=== PATIENT | female | born 1990 | race Two or more races ===

== ENCOUNTER 2020-01-15 11:41 | Observation (INO) | payer MEDICAID ==
[~2020-01-15] VITALS: Ht 167.6 cm; Wt 72.6 kg
[2020-01-15] MEDS ORDERED: PREN-96 PO (12:07)
== END 2020-01-15 12:50 | disposition home or self-care (01) ==
LOC: LDRP 11:41
PROVIDERS: ADMIT Obstetrics & Gynecology; ATTEND Obstetrics & Gynecology
DX: Z34.93 Encounter for supervision of normal pregnancy, unspecified, third trimester (principal); Z3A.27 27 weeks gestation of pregnancy
CPT/HCPCS: 59025; 76818; 81002; G0378

== ENCOUNTER 2020-01-18 13:33 | Observation (INO) | payer MEDICAID ==
[~2020-01-18 13:33] MED LIST: PREN-96 PO
== END 2020-01-18 15:26 | disposition home or self-care (01) ==
LOC: LDRP 13:33
PROVIDERS: ADMIT Obstetrics & Gynecology; ATTEND Obstetrics & Gynecology
DX: O09.293 Supervision of pregnancy with other poor reproductive or obstetric history, third trimester (principal); Z3A.27 27 weeks gestation of pregnancy
CPT/HCPCS: 59025; 76818; 81002; G0378

== ENCOUNTER 2020-01-25 14:42 | Observation (INO) | payer MEDICAID | END 2020-01-25 16:45 | disposition home or self-care (01) | LOC: LDRP 14:42 | PROVIDERS: ADMIT Specialist; ATTEND Specialist | DX: O60.03 Preterm labor without delivery, third trimester (principal); Z87.59 Personal history of other complications of pregnancy, childbirth and the puerperium; Z3A.29 29 weeks gestation of pregnancy | CPT/HCPCS: 59025; 76818; 81002; G0378 ==

== ENCOUNTER 2020-01-30 13:21 | Observation (INO) | payer MEDICAID | END 2020-01-30 15:14 | disposition home or self-care (01) | LOC: LDRP 13:21 | PROVIDERS: ADMIT Obstetrics & Gynecology; ATTEND Obstetrics & Gynecology | DX: Z34.83 Encounter for supervision of other normal pregnancy, third trimester (principal); Z3A.29 29 weeks gestation of pregnancy | CPT/HCPCS: 59025; 76818; 81002; G0378 ==

== ENCOUNTER 2020-03-12 13:19 | Observation (INO) | payer MEDICAID | END 2020-03-12 14:50 | disposition home or self-care (01) | LOC: LDRP 13:19 → UNDOADMOB 13:19 | PROVIDERS: ADMIT Specialist; ATTEND Specialist | DX: O09.293 Supervision of pregnancy with other poor reproductive or obstetric history, third trimester (principal); Z3A.35 35 weeks gestation of pregnancy | CPT/HCPCS: 59025; 76818; 81002; G0378 ==

== ENCOUNTER 2020-03-12 13:35 | Observation (INO) | payer MEDICAID ==
[2020-03-26] MEDS ORDERED: NIF10C PO (15:47)
[2020-03-26] MEDS: NIFEdipine 10 MG CAP PO ONE ×2 (15:53→15:57)
== END 2020-03-26 17:05 | disposition home or self-care (01) ==
LOC: LDRP 13:35 → UNDOADMOB 13:35 → LDRP 03-26 14:40
PROVIDERS: ADMIT Specialist; ATTEND Specialist
DX: O09.293 Supervision of pregnancy with other poor reproductive or obstetric history, third trimester (principal); Z3A.37 37 weeks gestation of pregnancy
CPT/HCPCS: 59025; 76818; 81002; G0378

== ENCOUNTER 2020-03-15 14:39 | Observation (INO) | payer MEDICAID ==
[~2020-03-15] VITALS: Ht 167.6 cm; Wt 85.7 kg
== END 2020-03-15 16:08 | disposition home or self-care (01) ==
LOC: LDRP 14:39
PROVIDERS: ADMIT Obstetrics & Gynecology; ATTEND Obstetrics & Gynecology
DX: O36.4XX0 Maternal care for intrauterine death, not applicable or unspecified (principal); Z3A.36 36 weeks gestation of pregnancy
CPT/HCPCS: 59025; 76818; 81002; G0378

== ENCOUNTER 2020-03-19 14:21 | Observation (INO) | payer MEDICAID | END 2020-03-19 16:30 | disposition home or self-care (01) | LOC: LDRP 14:21 | PROVIDERS: ADMIT Specialist; ATTEND Specialist | DX: O36.4XX0 Maternal care for intrauterine death, not applicable or unspecified (principal); Z3A.36 36 weeks gestation of pregnancy | CPT/HCPCS: 59025; 76818; 81002; G0378 ==

== ENCOUNTER 2020-04-05 05:15 | Observation (INO) | payer MEDICAID ==
[~2020-04-05 05:15] MED LIST changes: +NIF10C PO
== END 2020-04-05 06:20 | disposition home or self-care (01) ==
LOC: LDRP 05:15
PROVIDERS: ADMIT Specialist; ATTEND Specialist
DX: Z34.83 Encounter for supervision of other normal pregnancy, third trimester (principal); Z20.828 Contact with and (suspected) exposure to other viral communicable diseases; Z3A.39 39 weeks gestation of pregnancy
CPT/HCPCS: 36415; 59025; 81002; 87426; G0378; U0003

== ENCOUNTER 2020-04-05 10:50 | Inpatient (IN) | payer MEDICAID ==
[~2020-04-05] VITALS: Ht 167.6 cm; Wt 89.4 kg
[2020-04-05] VITALS (11 sets, daily range): BP systolic 93–115; BP diastolic 50–60
[2020-04-05] MEDS ORDERED: ceFAZolin 1GM/50ML 50 ML IV ONE (11:15)
[2020-04-05] MEDS ORDERED: LACTATED RINGER'S 1,000 ML IV SCH ×2 (11:15→14:45)
[2020-04-05] MEDS ORDERED: LACTATED RINGER'S 1,000 ML IV ONE (11:15)
[2020-04-05 12:03] LABS: Basophils # (auto) 0 10 ^3/uL (0-0.2); Eosinophils # (auto) 0.1 10 ^3/uL (0-0.8); Lymphocytes # (auto) 1.5 10 ^3/uL (0.4-5.4); Monocytes # (auto) 0.7 10 ^3/uL (0-1.3); Monocytes % (auto) 7.8 % (0.0-12.0); Nucleated Red Blood Cells % 0.1 %; Red Cell Distribution Width 16.3 % (11.8-14.3)
[2020-04-05 12:05] LABS: Basophils % (auto) 0.3 % (0.0-2.0); Eosinophils % (auto) 0.6 % (0.0-7.0); Hematocrit 32.1 % (36.0-46.0); Hemoglobin 10.9 g/dL (12.2-16.2); Lymphocytes % (auto) 16.3 % (10.0-50.0); Mean Corpuscular Hgb Conc. 33.9 g/dL (32.0-36.0); Mean Corpuscular Volume 73.8 fL (80.0-100.0); Neutrophils # (auto) 6.7 10 ^3/uL (1.6-8.6); Platelet Count (auto) 206 10^3/uL (140-450); Red Blood Cells 4.35 10^6/uL (4.0-5.20); White Blood Cell 8.9 10^3/uL (4.4-10.8)
[2020-04-05 12:16] LABS: Urine Bacteria NONE SEEN /hpf (None Seen); Urine Blood Negative /uL (Negative); Urine Specific Gravity 1.026 (1.001-1.035); Urine WBC 2 /hpf (0 - 5)
[2020-04-05 12:23] LABS: INR 0.9 (0.9-1.15); Partial Thromboplastin Time 24.1 sec (23.0-31.2)
[2020-04-05 12:25] LABS: Albumin 2.5 g/dL (3.4-5.0); Calcium 7.8 mg/dL (8.5-10.1)
[2020-04-05 12:25] LABS: Amphetamine Screen, Urine NEGATIVE (NEGATIVE); Barbiturate Scree,Urine NEGATIVE (NEGATIVE); Benzodiazephine Screen, Urine NEGATIVE (NEGATIVE); Cannabinoid Screen, Urine NEGATIVE (NEGATIVE); Cocaine Screen, Urine NEGATIVE (NEGATIVE); Opiate Scree,Urine NEGATIVE (NEGATIVE); Phencyclidine Screen, Urine NEGATIVE (NEGATIVE)
[2020-04-05 12:29] LABS: BUN/Creatinine Ratio 26.3; Bilirubin, Total 0.3 mg/dL (0.2-1.0); Total Protein 6.1 g/dL (6.4-8.2)
[2020-04-05] MEDS ORDERED: TETRACAINE 1% INJ 2 ML VIAL IJ ONE (12:53)
[2020-04-05] MEDS ORDERED: MORPHINE SULF(PF) 0.5MG/ML 10ML VIAL ONE (13:22)
[2020-04-05] MEDS ORDERED: MIDAZOLAM HCL 1MG/1ML-2 ML VIAL ONE (13:22)
[2020-04-05] MEDS ORDERED: fentaNYL CITRATE 100 MCG/2 ML VL ONE (13:22)
[2020-04-05] MEDS ORDERED: oxyTOCIN 10 UNIT/ML 10ML VIAL ONE (13:53)
[2020-04-05] MEDS ORDERED: KETOROLAC TROMETH 30 MG/ML 1ML VIAL IV PRN (14:30)
[2020-04-05] MEDS ORDERED: LABETALOL HCL 5 MG/ML 4ML SYRINGE IV PRN (14:30)
[2020-04-05] MEDS ORDERED: NALBUPHINE HCL 10 MG/1ml INJECTION SUBCUT ONE (14:30)
[2020-04-05] MEDS ORDERED: ONDANSETRON HCL 4 MG/2 ML VIAL IV PRN ×3 (14:30→14:45)
[2020-04-05] MEDS ORDERED: DexAMETHasone SOD PHOS 10MG/1ML VIAL INJ IV PRN (14:30)
[2020-04-05] MEDS ORDERED: ePHEDrine SULFATE 50 MG/ML AMP IV PRN (14:30)
[2020-04-05] MEDS ORDERED: HYDROmorphone HCL 2 MG/ML VL IV PRN (14:30)
[2020-04-05] MEDS ORDERED: NALOXONE HCL 0.4 MG/ML VIAL IV PRN (14:30)
[2020-04-05] MEDS ORDERED: diphenhdrAMINE HCL 50 MG/1 ML VL IV PRN (14:30)
[2020-04-05] MEDS ORDERED: GUM (CHEWING) 1 GUM CHEW CHEW ONE (14:45)
[2020-04-05] MEDS ORDERED: ceFAZolin 1GM/50ML 50 ML IV SCH (14:45)
[2020-04-05] MEDS: ceFAZolin 1GM/50ML 50 ML IV SCH (19:35)
[2020-04-05] MEDS: HYDROmorphone HCL 2 MG/ML VL IV PRN (19:47)
[2020-04-05] MEDS: KETOROLAC TROMETH 30 MG/ML 1ML VIAL IV PRN (20:27)
[2020-04-05] MEDS: ACETAMINOPHEN IV 1000 MG/100ML (10MG/ML) IV PRN (23:05)
[2020-04-06] VITALS (12 sets, daily range): BP systolic 90–127; BP diastolic 49–76
[2020-04-06] MEDS: HYDROmorphone HCL 2 MG/ML VL IV PRN ×3 (00:28→09:02)
[2020-04-06] MEDS: ceFAZolin 1GM/50ML 50 ML IV SCH ×2 (03:10→11:06)
[2020-04-06] MEDS: KETOROLAC TROMETH 30 MG/ML 1ML VIAL IV PRN ×2 (03:10→11:04)
[2020-04-06 05:06] LABS: RPR Non Reactive (Non Reactive)
[2020-04-06 07:02] LABS: Basophils # (auto) 0 10 ^3/uL (0-0.2); Eosinophils # (auto) 0.1 10 ^3/uL (0-0.8); Hematocrit 28.1 % (36.0-46.0); Hemoglobin 9.2 g/dL (12.2-16.2); Monocytes # (auto) 0.7 10 ^3/uL (0-1.3); White Blood Cell 10.5 10^3/uL (4.4-10.8)
[2020-04-06 07:05] LABS: Basophils % (auto) 0.1 % (0.0-2.0); Eosinophils % (auto) 0.7 % (0.0-7.0); Lymphocytes # (auto) 1.3 10 ^3/uL (0.4-5.4); Lymphocytes % (auto) 12.5 % (10.0-50.0); Mean Corpuscular Hemoglobin 24.2 pg (28.0-32.0); Mean Corpuscular Hgb Conc. 32.9 g/dL (32.0-36.0); Mean Corpuscular Volume 73.6 fL (80.0-100.0); Monocytes % (auto) 6.5 % (0.0-12.0); Neutrophils # (auto) 8.4 10 ^3/uL (1.6-8.6); Neutrophils % (auto) 80.2 % (37.0-80.0); Platelet Count (auto) 176 10^3/uL (140-450); Red Blood Cells 3.82 10^6/uL (4.0-5.20); Red Cell Distribution Width 16.2 % (11.8-14.3)
[2020-04-06] MEDS ORDERED: HYDROcodone-ACET 5/325MG TAB PO PRN (10:45)
[2020-04-06] MEDS: ACETAMINOPHEN IV 1000 MG/100ML (10MG/ML) IV PRN (17:00)
[2020-04-06] MEDS: IBUPROFEN 800 MG TAB PO PRN (17:55)
[2020-04-06] MEDS: DOCUSATE SOD 100 MG CAP PO SCH ×2 (17:55→21:28)
[2020-04-06] MEDS: HYDROcodone-ACET 5/325MG TAB PO PRN (21:29)
[2020-04-07] VITALS (7 sets, daily range): BP systolic 110–126; BP diastolic 50–69
[2020-04-07] MEDS: IBUPROFEN 800 MG TAB PO PRN ×5 (01:55→19:40)
[2020-04-07] MEDS: HYDROcodone-ACET 5/325MG TAB PO PRN ×5 (05:35→22:09)
[2020-04-07] MEDS: DOCUSATE SOD 100 MG CAP PO SCH (22:06)
[2020-04-08 03:00] VITALS: BP 105/58
[2020-04-08] MEDS: HYDROcodone-ACET 5/325MG TAB PO PRN (05:34)
[2020-04-08] MEDS ORDERED: PREN-96 PO (06:47)
[2020-04-08 07:22] VITALS: BP 121/54
[2020-04-08] MEDS: IBUPROFEN 800 MG TAB PO PRN (08:12)
[2020-04-08] MEDS ORDERED: BISACODYL 10 MG RECT SUPP PR ONE (10:30)
[2020-04-08 11:04] VITALS: BP 139/71
[2020-04-08] MEDS: DOCUSATE SOD 100 MG CAP PO SCH (11:08)
== END 2020-04-08 11:15 | disposition home or self-care (01) | DRG 540 ==
LOC: LDRP 10:50
PROVIDERS: ADMIT Specialist; ATTEND Specialist
PROC: 0UL70CZ Occlusion of Bilateral Fallopian Tubes with Extraluminal Device, Open Approach (ICD-10-PCS; 2020-04-05)
PROC: 10D00Z1 Extraction of Products of Conception, Low, Open Approach (ICD-10-PCS; principal; 2020-04-05 13:23)
DX: O34.211 Maternal care for low transverse scar from previous cesarean delivery (principal); Z37.0 Single live birth; Z3A.39 39 weeks gestation of pregnancy; Z30.2 Encounter for sterilization
CPT/HCPCS: 36415; 59025; 80053; 80307; 81001; 81002; 85025; 85610; 85730; 86592; 86850; 86900; 86901; 94760; 96360; 96361; 96374; 96375; G0378; J0131; J0690; J1885; J2250; J2590

== ENCOUNTER 2020-06-12 09:29 | Emergency (ER) | payer MEDICAID ==
[~2020-06-12] VITALS: Ht 167.6 cm; Wt 77.1 kg
[~2020-06-12 09:29] MED LIST changes: -NIF10C PO
[2020-06-12] MEDS ORDERED: MORPHINE SULFATE 4 MG/ML SYR/VIAL IV ONE (10:00)
[2020-06-12] MEDS ORDERED: SODIUM CHLORIDE 0.9% 1,000 ML IV ONE (10:00)
[2020-06-12] MEDS ORDERED: ONDANSETRON HCL 4 MG/2 ML VIAL IV ONE (10:00)
[2020-06-12 10:42] LABS: Urine WBC None Seen /hpf (0 - 5)
[2020-06-12 10:50] LABS: Basophils # (auto) 0 10 ^3/uL (0-0.2); Eosinophils # (auto) 0.1 10 ^3/uL (0-0.8); Hemoglobin 11.5 g/dL (12.2-16.2); Lymphocytes # (auto) 1.5 10 ^3/uL (0.4-5.4); Monocytes # (auto) 0.7 10 ^3/uL (0-1.3); Red Blood Cells 4.55 10^6/uL (4.0-5.20); White Blood Cell 7.1 10^3/uL (4.4-10.8)
[2020-06-12 10:52] LABS: Basophils % (auto) 0.4 % (0.0-2.0); Eosinophils % (auto) 1.6 % (0.0-7.0); Hematocrit 34.6 % (36.0-46.0); Lymphocytes % (auto) 20.9 % (10.0-50.0); Mean Corpuscular Hemoglobin 25.2 pg (28.0-32.0); Mean Corpuscular Hgb Conc. 33.2 g/dL (32.0-36.0); Neutrophils # (auto) 4.7 10 ^3/uL (1.6-8.6); Neutrophils % (auto) 67.1 % (37.0-80.0); Nucleated Red Blood Cells % 0.1 %; Platelet Count (auto) 246 10^3/uL (140-450)
[2020-06-12 10:58] LABS: Urine Bacteria NONE SEEN /hpf (None Seen); Urine Blood Negative /uL (Negative); Urine Specific Gravity 1.014 (1.001-1.035)
[2020-06-12 11:01] LABS: Red Cell Distribution Width 20.4 % (11.8-14.3)
[2020-06-12 11:17] LABS: Albumin 3.2 g/dL (3.4-5.0); Calcium 8.6 mg/dL (8.5-10.1); Potassium 3.9 mmol/L (3.5-5.1)
[2020-06-12 11:20] LABS: BUN/Creatinine Ratio 26.9; Bilirubin, Total 0.2 mg/dL (0.2-1.0); Total Protein 6.4 g/dL (6.4-8.2)
[2020-06-12] MEDS ORDERED: MORPHINE SULF INJ 2 MG/ML SYRINGE 1ML IV ONE (12:15)
[2020-06-12] MEDS ORDERED: HYDROmorphone HCL 2 MG/ML VL IV ONE (15:45)
[2020-06-12] MEDS ORDERED: MAGNESIUM CITRATE SOLUTION 300 ML BTL PO ONE (17:15)
[2020-06-12 17:39] VITALS: BP 104/53
== END 2020-06-12 17:48 | disposition home or self-care (01) ==
LOC: ER 09:29
DX: K59.00 Constipation, unspecified (principal); D27.1 Benign neoplasm of left ovary
CPT/HCPCS: 36415; 74176; 76856; 80053; 81001; 83605; 83690; 84702; 85025; 96361; 96374; 96375; 96376; 99285; J1170; J2270; J2405